=== PATIENT | female | born 1955 | race Caucasian/White ===

== ENCOUNTER 2020-11-21 06:27 | Inpatient (IN) ==
--- NOTE | 2020-11-14 13:45 | PAT Medication Instructions ---
Medication Instructions Date of Service November 14, 2020 Home Medications albuterol sulfate 90 mcg/actuation aerosol inhaler 1 puffs INH Q6H PRN aspirin 81 mg chewable tablet 81 mg PO QAM atorvastatin 20 mg tablet 20 mg PO QAM bupropion HCl 300 mg 24 hr tablet, extended release 300 mg PO QAM clopidogrel 75 mg tablet 75 mg PO QAM metoprolol succinate 25 mg capsule sprinkle, ext. release 24 hr 25 mg PO QAM nitroglycerin 0.4 mg sublingual tablet 0.4 mg SL Q5M PRN tramadol 50 mg tablet 50 mg PO DAILY PRN umeclidinium 62.5 mcg-vilanterol 25 mcg/actuation powdr for inhalation 1 puffs INH Q24H furosemide 40 mg PO QAM Continue as directed nitroglycerin 0.4 mg sublingual tablet 0.4 mg SL Q5M PRN ASK your prescriber and surgeon aspirin 81 mg chewable tablet 81 mg PO QAM clopidogrel 75 mg tablet 75 mg PO QAM DO NOT take the morning of surgery furosemide 40 mg PO QAM Take morning of surgery With a small sip of water, OTHERWISE NOTHING TO EAT OR DRINK AFTER MIDNIGHT: albuterol sulfate 90 mcg/actuation aerosol inhaler 1 puffs INH Q6H PRN (if need ed, and bring with you to the hospital) atorvastatin 20 mg tablet 20 mg PO QAM bupropion HCl 300 mg 24 hr tablet, extended release 300 mg PO QAM metoprolol succinate 25 mg capsule sprinkle, ext. release 24 hr 25 mg PO QAM tramadol 50 mg tablet 50 mg PO DAILY PRN (if needed, may be taken up to four hours before surgery) umeclidinium 62.5 mcg-vilanterol 25 mcg/actuation powdr for inhalation 1 puffs INH Q24H Other Notes If you have any questions please call us at [phone] or [phone] or [phone] or [phone]
--- NOTE | 2020-11-16 11:46 | Anesthesiology Consultation ---
Date of Service November 16, 2020 Assessment & Plan (1) Encounter for pre-operative examination: COVID Status: As of 11/16 assessment, patient denies travel to endemic area, known exposure/sick contacts, or symptoms of COVID19. Patient instructed that they and their household members must follow strict social distancing guidelines, wear a mask in public and avoid travel/events/gatherings for 14 days prior to surgery. Preoperative COVID19 testing to be completed prior to surgery per surgeon's arrangements. Patient made aware to self-isolate as much as possible between COVID testing and surgery. Patient with left chest wall BiV ICD for cardiomyopathy (EF 20-25%). Case discussed with Dr. Vuong. Will request [employer] phlebotomy services representative be present a.m. day of surgery given proximity of surgery to ICD. OR made aware. Patient seen for cardiology office visit 08/11/2020. "CADcontinue ASA and Plavix. EF remains poorcontinue medsclinically no CHF... 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 Clinically without CHF symptoms despite LV dysfunctionchange to Entresto and continue and BB; s/p His lead BiV ICD." Also received note from cardio indicating patient is intermediate cardiac risk -- "pt is optimized on medical therapy." Pt c/o hoarse voice and sore throat at [facility]. No known COVID exposures, no high- risk activity. COVID testing completed 11/16/20 at surgeon's office -- results NEGATIVE. Chart Review Chart Review: Acceptable Risk for Surgery and Patient seen in Pre Admission Testing Teaching & Discussion Instructed NPO after midnight before surgery, except medications with 15 cc of water. Medication instructions provided according to the [facility] guidelines. History Surgery Operation Date: 11/21/20 08:00 Proposed Procedures p Left Carotid Endarterectomy - Topher Brooks MD Height/Weight Height: 5 ft 2.5 in Weight: 110.9 kg Allergies Allergy/AdvReac Type Severity Reaction Status Date / Time Penicillins Allergy hives Verified 11/07/20 10:23 Medications Home Medications Medication Instructions Recorded Confirmed Last Taken albuterol sulfate 90 mcg/actuation 1 puffs INH Q6H PRN 07/23/19 11/07/20 Unknown aerosol inhaler aspirin 81 mg chewable tablet 81 mg PO QAM 07/23/19 11/07/20 Unknown atorvastatin 20 mg tablet 20 mg PO QAM 07/23/19 11/07/20 Unknown bupropion HCl 300 mg 24 hr tablet, 300 mg PO QAM 07/23/19 11/07/20 Unknown extended release clopidogrel 75 mg tablet 75 mg PO QAM 07/23/19 11/07/20 Unknown metoprolol succinate 25 mg capsule 25 mg PO QAM 07/23/19 11/07/20 Unknown sprinkle, ext. 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 Was seen by Wendy for possible bx or surgical intervention 07/28/19, but was in the midst of her cardiac workup at that time. Mediastinal mass Exercise / Class Metabolic Activity III < 4 Walking/Shop/Light housework (+SOB with 1 FOS and with ambulation, denies any chest pain) Past Family History Family History (Updated 07/28/19 @ 11:49 by Saira Lou RN) Other Diabetes Hypertension Past Surgical History Surgical History (Updated 11/16/20 @ 12:04 by Paulie Correa) History of heart artery stent 07/30/19 [facility]. Two-vessel obstructive CAD with successful PCI with FORD of the mid RCA. 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 +hoarse voice/laryngitis, just mildly sore throat in AM Physical Exam Vital Signs BP: 120/70 P: 83bpm SPO2: 94% RA T: 98.1 F R: 20 Constitutional + obese ENMT Mouth: + dentures (full upper, partial lower); no chipped teeth and no loose teeth Mallampati Class: IV Posterior oropharynx mildly erythematous. Neck + short neck and + thick neck; neck extension not limited Respiratory normal respiratory effort, lungs clear to auscultation Auscultation: + diminished lung sounds (B/L); no crackles, no rales and no wheezes Cardiovascular RRR, no murmur, no edema Testing Laboratory Results 11/16/20 11:48 PT 10.3 Seconds (9.0-12.0) 11/16/20 11:48 INR 1.0 (0.9-1.1) 11/16/20 11:48 APTT 25.4 Seconds (21.0-31.0) 11/16/20 11:48 Blood Type A Positive 11/16/20 11:48 Antibody Screen NEGATIVE 11/16/20 11:48 BMP 11/11/20 SODIUM: 140 POTASSIUM: 4.5 CHLORIDE: 103 CO2: 31 BUN: 20 CREATININE: 0.94 GLUCOSE: 103 Electrocardiogram Date: 11/16/20 Atrial sensed ventricular paced rhythm at 78 bpm. Chest X-Ray Date: 11/16/20 Findings: + NAD Cardiomegaly. Echocardiogram Date: 08/03/20 EF: 20-25% Normal LV wall thickness. Wall motion abnormalities as noted above (mid to apical inferior/anterolateral wall akinesis, basal inferior akinesis, and global hypokinesis). Severe left ventricular systolic dysfunction. Moderate aortic insufficiency, moderate mitral regurgitation, mild mitral stenosis, and trace tricuspid regurgitation. Mild pulmonary hypertension. Grade 1 diastolic dysfunction. Compared to the previous study the overall EF has improved slightly; the diastolic dysfunction is also improved, was previously restrictive. Cardiac Catheterization Date: 07/30/19 Two-vessel obstructive coronary artery disease as above. Successful PCI with FORD of the mid RCA. Elevated left ventricular end-diastolic pressure. No gradient across aortic valve. Other Testing Pacemaker/ICD Interrogation 07/28/20 Model: Accent Implantation date: 01/27/20 Indication: Coronary artery disease Battery/Longevity: 2.95 volts, 3.3 years Mode: DDDR Pacin% ventricular pacing, 29.6% RA pacing Summary: No events. OptiVol is WNL. This is a normal implantable cardioverter defibrillator remote follow-up. No significant device related abnormalities were noted.
--- NOTE | 2020-11-16 12:09 | XRay Report ---
XR chest Pre-admission PA/Lat CLINICAL HISTORY: Preoperative chest COMPARISON STUDY: No previous studies for comparison. FINDINGS: The heart is enlarged. There is a left subclavian dual-chamber pacer/defibrillator. There i s no failure. There is no focal pulmonary consolidation. There are no pleural effusions.[ IMPRESSION: Cardiomegaly. No acute findings. ACT 112: Negative or not required by law. Electronically signed by: John Davies M.D. 11/16/2020 12:07 PM
[2020-11-16 13:30] LABS: Partial Thromboplastin Time 25.4 Seconds (21.0-31.0); Prothrombin Time 10.3 Seconds (9.0-12.0)
[2020-11-16 13:32] LABS: Basophils # (auto) 0.02 K/uL (0-0.2); Basophils % (auto) 0.2 %; Eosinophils # (auto) 0.12 K/uL (0-0.5); Eosinophils % (auto) 1.4 %; Hematocrit (blood only) 50.4 % (37-47); Hemoglobin 16.7 g/dL (12.0-16.0); Immature Granulocytes # (auto) 0.01 K/uL (0.00-0.02); Immature Granulocytes % (auto) 0.1 %; Lymphocytes # (auto) 2.14 K/uL (1.2-3.4); Lymphocytes % (auto) 24.3 %; Mean Corpuscular Hemoglobin 31.9 pg (25-34); Mean Corpuscular Hgb Conc 33.1 g/dL (32-36); Mean Corpuscular Volume 96.4 fL (80-100); Mean Platelet Volume 9.8 fL (7.4-10.4); Monocytes % (auto) 9.1 %; Neutrophils # (auto) 5.73 K/uL (1.4-6.5); Neutrophils % (auto) 64.9 %; Platelet Count 215 K/uL (130-400); RDW Coefficient of Variation 13.5 % (11.5-14.5); RDW Standard Deviation 47.7 fL (36.4-46.3); Red Blood Count 5.23 M/uL (4.2-5.4); White Blood Count 8.82 K/uL (4.8-10.8)
--- NOTE | 2020-11-16 16:23 | Electrocardiogram Report ---
Test Reason : Blood Pressure : / mmHG Vent. Rate : 078 BPM Atrial Rate : 078 BPM P-R Int : 108 ms QRS Dur : 198 ms QT Int : 482 ms P-R-T Axes : 071 065 270 degrees QTc Int : 549 ms Atrial-sensed ventricular-paced rhythm Abnormal ECG No previous ECGs available Confirmed by Irineo Ash ([id number]) on 11/16/2020 4:23:30 PM Referred By: Topher Brooks Confirmed By:Irineo Ash
[~2020-11-21 06:27] MED LIST: ALBUMIN HUMAN 5% 12.5 GM/250 ML VIAL IV ONE; CLINDAMYCIN 600 MG/54 ML BAG IV SCH; SUGAMMADEX SODIUM 200 MG/2 ML VIAL IV ONE
[2020-11-21] MEDS ORDERED: HYDROmorphone INJ 2 MG/ML SYR/VIAL ONE (06:46)
[2020-11-21] MEDS ORDERED: MIDAZOLAM HCL 1 MG/ML 2ML VIAL ONE (06:46)
[2020-11-21] MEDS ORDERED: fentaNYL citrate 100 MCG/2 ML VIAL ONE (06:46)
[2020-11-21] MEDS ORDERED: THROMBIN FOR SOLN 20000 UNIT KIT ONE (07:06)
[2020-11-21] MEDS ORDERED: GELATIN SPONGE SZ 100 ONE (07:06)
[2020-11-21] MEDS ORDERED: HEPARIN (PORCINE) 1000 UNIT/ML 10 ML (CATH LAB USE ONLY) ONE (07:06)
[2020-11-21] MEDS ORDERED: BUPIVACAINE/EPINEPHRINE 0.5% MPF 1:200,000 30 ML VIAL ONE (07:06)
[2020-11-21] MEDS ORDERED: LIDOCAINE HCL 1% 20 ML VIAL ONE (07:06)
[2020-11-21] MEDS ORDERED: ATROPINE SULFATE 0.1 MG/ML 10ML SYR IV PRN (07:07)
[2020-11-21] MEDS ORDERED: fentaNYL citrate 100 MCG/2 ML VIAL IV PRN (07:07)
[2020-11-21] MEDS ORDERED: ePHEDrine sulfate 50 MG/ML AMP IV PRN (07:07)
[2020-11-21] MEDS ORDERED: ONDANSETRON INJ 2 MG/ML 2 ML VIAL IV PRN (07:07)
--- NOTE | 2020-11-21 07:29 | History & Physical Report ---
Date of Service November 21, 2020 Assessment & Plan (1) Stenosis of left internal carotid artery: Patient is admitted for a left carotid endarterectomy. I have discussed the risks options and benefits of the procedure with the patient. The patient understands the risks options and benefits and agrees to the procedure. History of Present Illness Chief Complaint: Left internal carotid artery stenosis Primary Care Provider: Jordon Isaac MD Ms Overton is a 65-year-old obese female with a history of cardiac disease with cardiac stenting in July 2019 as well as COPD. She was found to have a left carotid stenosis on ultrasound. This was confirmed by further imaging and finally by arteriography. The arteriogram showed severe stenosis of left internal carotid artery which was focal at the origin with a large amount of plaque present. She is asymptomatic from carotid disease at this time. She does not have any chest pain. She denies any claudication of the lower extremities. He does get occasional shortness of breath on walking due to her COPD. She does smoke a pack a day for last 30 years and continues to smoke. Allergies Allergy/AdvReac Type Severity Reaction Status Date / Time Penicillins Allergy hives Verified 11/21/20 06:51 Home Medications Medication Instructions Recorded Confirmed Type albuterol sulfate 90 mcg/actuation 1 puffs INH Q6H PRN 07/23/19 11/21/20 History aerosol inhaler aspirin 81 mg chewable tablet 81 mg PO QAM 07/23/19 11/21/20 History atorvastatin 20 mg tablet 20 mg PO QAM 07/23/19 11/21/20 History bupropion HCl 300 mg 24 hr tablet, 300 mg PO QAM 07/23/19 11/21/20 History extended release clopidogrel 75 mg tablet 75 mg PO QAM 07/23/19 11/21/20 History metoprolol succinate 25 mg capsule 25 mg PO QAM 07/23/19 11/21/20 History sprinkle, ext. 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 Was seen by Wendy for possible bx or surgical intervention 07/28/19, but was in the midst of her cardiac workup at that time. Mediastinal mass Surgical History History of heart artery stent 07/30/19 On license of [facility]. Two-vessel obstructive CAD with successful PCI with FORD of the mid RCA. 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 S/P knee surgery Family History Other Diabetes Hypertension Social History Smoking Status: Current every day smoker packs per day: 0.5; Years Smoked: 30; Cigarettes Per Day: 3-5 cig a day; Second Hand Exposure: No; Do You Dip or Chew Tobacco: No; Tobacco Cessation Education Requested by Patient: No Hx Alcohol Use: No Hx Substance Use: No Preferred Language: Sami Communication Ability: Effective Soup Mixer Required: No Beliefs That Will Affect Care: None marital status: Current Living Situation: Spouse current occupational status: unemployed Other Information That Helps Us Care for You: No Feels Safe at Home: Yes Safety Concerns: Feels Safe At This Time Assistive Devices: Glasses Review of Systems All systems reviewed & are unremarkable except as noted in HPI & below Physical Exam Physical Exam: On exam the patient is awake alert and oriented x3. She is in no apparent distress. Her radials are +2 bilaterally. Neck cannot really appreciate carotid bruits. Her lungs had decreased breath sounds in the bases and occasional wheezing. Heart had a regular rate and rhythm. Abdominal exam is benign. Her pedal pulses were nonpalpable. She does have slightly decreased capillary refill of the lower extremities. Her lower extremities appear to show signs of venous insufficiency. Her neurologic exams grossly intact to motor and sensory function. Her angiogram films were reviewed which showed a severe stenosis of the origin of the left internal carotid artery with a large amount of plaque in poststenotic dilatation. Results & Data ([facility]) Vital Signs (Past 12 Hours) Vital Signs Temp Pulse Resp BP BP Pulse Ox 11/21/20 07:05 36.6 C 96 H 24 167/75 H 120/66 94
[2020-11-21] MEDS: LACTATED RINGER'S 1,000 ML IV SCH ×4 (07:35→23:46)
[2020-11-21] MEDS ORDERED: LIDOCAINE HCL 2% MPF (LOCAL) 5 ML VIAL INFIL ONE (07:41)
[2020-11-21] MEDS ORDERED: ePHEDrine sulfate 50 MG/ML SYR ONE (08:54)
[2020-11-21] MEDS ORDERED: ROCURONIUM BROMIDE 10 MG/ML 5 ML VIAL IV ONE (08:54)
[2020-11-21] MEDS ORDERED: ETOMIDATE 2 MG/ML 20 ML VIAL IV ONE (08:54)
[2020-11-21] MEDS ORDERED: ONDANSETRON INJ 2 MG/ML 2 ML VIAL ONE (08:54)
[2020-11-21] MEDS ORDERED: SODIUM CHLORIDE 0.9% INJ 10 ML VIAL ONE (08:54)
[2020-11-21] MEDS ORDERED: LARYING-O-JET KIT (LTA) ONE (08:54)
[2020-11-21] MEDS ORDERED: LIDOCAINE HCL 2% 2 ML VIAL/AMP(20MG/ML) INFIL ONE (08:54)
[2020-11-21] MEDS ORDERED: HEPARIN SOD (PORCINE) 1000 UNIT/ML ONE (08:58)
--- NOTE | 2020-11-21 10:37 | Operative Report ---
Post Operative Report Pre & Post Diagnosis Operation Date: 11/21/20 08:00 Pre-Op Diagnosis: Left Internal Carotid Artery Stenosis Post-Op Diagnosis: Left Internal Carotid Artery Stenosis I identified the patient and participated in the time-out.: Yes Procedure Operation Date: 11/21/20 08:00 Actual Procedures p Left Carotid Endarterectomy with bovine patch(Left) - Topher Brooks MD Surgeon Topher Brooks MD Bankruptcy Assistant CALIN Crow Estimated Blood Loss 80 Findings Consistent with Post-Op Diagnosis Specimens plaque and lymph node Anesthesia Type General Complications none Disposition Accompanied Patient To Recovery: No Disposition: Recovery Room Indications This a 65yo who was found to have a severe left internal carotid artery stenosis. Endarterectomy was recommended. I have discussed the risks options and benefits of the procedure with the patient. The patient understands the risks options and benefits and agrees to the procedure. Description of Procedure The patient was taken to the operating room and placed in supine position. After general anesthesia was accomplished the left side of the neck was prepped and draped in a sterile manner. The patient was identified and a timeout performed. A longitudinal neck incision was then made coursing along the medial border of the sternocleidomastoid muscle. The incision was taken down through the platysmal layer. The facial vein was identified, ligated, and divided. The common carotid artery was then seen. It was dissected free down to the omohyoid muscle. The dissection was carried upward until the external carotid artery and superior thyroid artery was seen. The superior thyroid artery was slung with a 2-0 silk suture. The external carotid was slung with a red rubber vessel loop. Next the dissection was carried up along the internal carotid artery. This was carried upward to beyond the area of narrowing. The hypoglossal nerve was seen and preserved. The patient was heparinized. After adequate heparinization was accomplished, the internal, external, and common carotid arteries were clamped. A longitudinal arteriotomy was started on the common carotid artery and extended upward along the internal carotid artery to a point beyond the area of narrowing. There was calcified plaque of the internal carotid artery origin causing approximately 90% narrowing. A Doppler shunt was then placed in the internal, followed by the common carotid artery and held in place with Héctor clamps. There was good back bleeding seen from the internal carotid artery. The endarterectomy was then started in the appropriate plane on the common carotid artery. This was carried upward and the external carotid was everted and endarterectomized. The endarterectomy was then carried up along the internal carotid artery till a nice feathering breakoff point was accomplished beyond the end of the plaque. The endarterectomy was then carried down further on the common carotid artery. At end of the arteriotomy, the plaque was then transected. Under loop magnification, all loose debris and flaps werer removed. There is no distal flap seen at the end of the endarterectomy site. I did place two tacking sutures at the end of the plaque breakoff point. The arteriotomy then closed using a Bovine patch and a running 6-0 prolene suture. This was done in the usual vascular fashion. Prior to completing the closure, the doppler shunt was removed and the internal and common carotid arteries were reclamped. Backbleeding and forward bleeding was allowed to occur. The flow surface was irrigated with heparinized saline. The final few sutures were then placed and securely tied. Clamps were then removed off the external and common carotid arteries. The clamp was then removed the internal carotid artery. Good distal flow was seen. Adequate hemostasis was seen of the patch. The wound was inspected and adequate hemostasis was obtained. The wound was irrigated with antibiotic solution. It was then closed with a running 3-0 Vicryl suture for the platysmal layer and a 4-0 subcuticular Vicryl suture for the skin edges. Dermabond was used for dressing. The patient left the operation room in satisfactory condition and tolerated the procedure well. All needle and sponge counts were correct at the end of the procedure. Nathalia Hayes Pac assisted due to lack of resident availability and was necessary for prepping, draping, retraction, wound closure defects, subQ and skin closure and was necessary for the case. I attest to the content of the Intraoperative Record and any orders documented therein. Any exceptions are noted below.
[2020-11-21] MEDS ORDERED: PROTAMINE SULFATE 10 MG/ML 5 ML VIAL ONE (11:08)
--- NOTE | 2020-11-21 11:51 | Anesthesiology Progress Note ---
Date of Service November 21, 2020 Anesthesia Post Procedure Vital Signs Vital Signs: Temp Pulse Resp BP BP BP Pulse Ox 11/21/20 11:43 97.5 F L 84 17 140/71 126/49 L 93 11/21/20 11:20 84 17 157/79 H 136/53 L 93 11/21/20 11:10 85 17 157/62 H 145/60 H 93 11/21/20 11:02 97.0 F L 84 18 147/61 H 147/59 H 93 11/21/20 07:05 97.9 F 96 H 24 167/75 H 120/66 94 Transfer of Care Handoff Completed per policy Notes Mental Status: alert / awake / arousable and participated in evaluation Patient Amnestic to Procedure: Yes Nausea / Vomiting: adequately controlled Pain: adequately controlled Airway Patency, RR, SpO2: stable & adequate BP & HR: stable & adequate Hydration State: stable & adequate Anesthetic Complications: no major complications apparent and Pt Satisfied with anesthetic care
[2020-11-21] MEDS ORDERED: traMADol HCL 50 MG TABLET PO PRN (12:26)
[2020-11-21] MEDS ORDERED: MoRPHine SULFATE 4 MG/ML 1 ML CARP\\VIAL IV PRN (12:26)
[2020-11-21] MEDS ORDERED: ALBUTEROL HFA 8 GM INHALER INH PRN (12:26)
[2020-11-21] MEDS ORDERED: NITROGLYCERIN SL 0.4 MG/TAB TAB SL PRN (12:26)
[2020-11-21] MEDS ORDERED: oxyCODONE/ACETAMINOPHEN 5mg/325mg TAB PO PRN (12:26)
[2020-11-21] MEDS ORDERED: UMECLIDINIUM/VILANTEROL 62.5/25MCG 7 PUFFS/INHALER INH SCH (12:26)
[2020-11-21] MEDS ORDERED: PNEUMOCOCCAL ADMINISTRATION CHARGE ONE (13:24)
[2020-11-21] MEDS ORDERED: PNEUMOCOCCAL POLYSACCHARIDES 25 MCG/0.5 ML VIAL/SYR IM ONE (13:24)
--- NOTE | 2020-11-21 14:18 | Critical Care Consultation ---
Date of Consultation November 21, 2020 Assessment & Plan (1) Stenosis of left internal carotid artery: (2) Mass of right lung: (3) COPD (chronic obstructive pulmonary disease): (4) Hypertension: (5) Hyperlipemia: Impression: 65-year-old female status post left carotid endarterectomy for asymptomatic carotid stenosis. She is doing well in the ICU postoperatively. Recommendations: 1. Carotid endarterectomy: Management per vascular surgery. Will defer to them blood pressure goals. 2. Hypertension/hyperlipidemia: Continue outpatient medications including Lipitor and metoprolol as well as sublingual nitro and valsartan/sacubitril. 3. Abnormal CT scan: The patient has a 5 cm right middle lobe mass identified on CT scanning from 2019. Recommend follow-up CT scan if this is not been accomplished although her chest x-ray does not demonstrate significant abnormality which would argue for a benign nature of the lesion. This can be accomplished in outpatient follow-up with the pulmonary clinic after discharge if needed. 4. COPD: PFTs not available. Continue Anoro and as needed albuterol. Wean oxygen as tolerated. Increase activity and out of bed to chair as tolerated. Ultimate disposition per vascular surgery. We will continue to follow while in the intensive care unit. Feel free to contact us if questions. History of Present Illness Attending Physician: Topher Brooks MD History of Present Illness Asked by Dr. Brooks to assist in critical care management of this patient status post left carotid endarterectomy. This 65-year-old female has a history of coronary artery disease. She was found to have left carotid stenosis on imaging and confirmed by arteriography. She was asymptomatic. She has a history of tobacco abuse. She was felt appropriate for carotid endarterectomy and was taken to the OR today. She returns to the ICU extubated. She is doing well clinically. She is having no pain issues. She states she is breathing well. No neurological defects currently. Allergies Allergy/AdvReac Type Severity Reaction Status Date / Time Penicillins Allergy hives Verified 11/21/20 06:51 Home Medications Medication Instructions Recorded Confirmed Type albuterol sulfate 90 mcg/actuation 1 puffs INH Q6H PRN 07/23/19 11/21/20 History aerosol inhaler aspirin 81 mg chewable tablet 81 mg PO QAM 07/23/19 11/21/20 History atorvastatin 20 mg tablet 20 mg PO QAM 07/23/19 11/21/20 History bupropion HCl 300 mg 24 hr tablet, 300 mg PO QAM 07/23/19 11/21/20 History extended release clopidogrel 75 mg tablet 75 mg PO QAM 07/23/19 11/21/20 History metoprolol succinate 25 mg capsule 25 mg PO QAM 07/23/19 11/21/20 History sprinkle, ext. 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 Was seen by Wendy for possible bx or surgical intervention 07/28/19, but was in the midst of her cardiac workup at that time. Mediastinal mass Surgical History History of heart artery stent 07/30/19 [facility]. Two-vessel obstructive CAD with successful PCI with FORD of the mid RCA. 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 S/P knee surgery Family History Other Diabetes Hypertension Social History Smoking Status: Current every day smoker packs per day: 0.5; Years Smoked: 30; Cigarettes Per Day: 3-5 cig a day; Second Hand Exposure: No; Do You Dip or Chew Tobacco: No; Tobacco Cessation Education Requested by Patient: No Hx Alcohol Use: No Hx Substance Use: No Preferred Language: Malay Communication Ability: Effective Drafting Supervisor Required: No Beliefs That Will Affect Care: None marital status: Current Living Situation: Spouse current occupational status: unemployed Other Information That Helps Us Care for You: No Feels Safe at Home: Yes Safety Concerns: Feels Safe At This Time Assistive Devices: Glasses Review of Systems Review of Systems: Patient seen and examined. Please refer to vascular surgery note for complete details Physical Exam Constitutional: WD/WN, vitals as above Neck: trachea midline, no thyromegaly Respiratory: normal respiratory effort, lungs clear to auscultation Cardiovascular: RRR, no murmur, no edema Gastrointestinal (Abdomen): normal bowel sounds, soft, nontender, no hepatos plenomegaly Musculoskeletal: Extremities: extremities normal to inspection Skin: no rashes, warm and dry Neurologic: Nonfocal exam Lymphatic: no cervical lymphadenopathy Results & Data Results & Data ([facility]) Vital Signs (Past 12 Hours) Vital Signs Temp Pulse Pulse Resp BP BP BP 11/21/20 12:31 36.7 C 11/21/20 12:06 84 20 137/69 11/21/20 11:43 36.4 C L 84 17 140/71 11/21/20 11:20 84 17 157/79 H 11/21/20 11:10 85 17 157/62 H 11/21/20 11:02 36.1 C L 84 18 147/61 H 11/21/20 07:05 36.6 C 96 H 24 167/75 H BP Pulse Ox 11/21/20 12:31 11/21/20 12:06 92 11/21/20 11:43 126/49 L 93 11/21/20 11:20 136/53 L 93 11/21/20 11:10 145/60 H 93 11/21/20 11:02 147/59 H 93 11/21/20 07:05 120/66 94 Laboratory Results 11/16/20 11:48 Diagnostic Findings Chest x-ray: 11/16/2020: Cardiomegaly is noted with probable hiatal hernia. Dual-chamber pacemaker in place with significant cardiomegaly. No focal airspace opacity identified Coding Level of Care Code 89023 Inpt Consult Level 4 Diagnoses Stenosis of left internal carotid artery I65.22 Mass of right lung R91.8 COPD (chronic obstructive pulmonary disease) J44.9 Hypertension I10 Hyperlipemia E78.5 Time Spent (min) 45
[2020-11-21] MEDS: CLINDAMYCIN 600 MG in DEXTROSE 5% 50 ML IV SCH ×2 (16:06→23:27)
[2020-11-21] MEDS: SACUBITRIL-VALSARTAN 24-26 MG TAB PO SCH (21:59)
[2020-11-22 05:44] LABS: Basophils # (auto) 0.01 K/uL (0-0.2); Basophils % (auto) 0.1 %; Eosinophils # (auto) 0.02 K/uL (0-0.5); Eosinophils % (auto) 0.2 %; Hemoglobin 14.6 g/dL (12.0-16.0); Immature Granulocytes # (auto) 0.03 K/uL (0.00-0.02); Immature Granulocytes % (auto) 0.2 %; Lymphocytes # (auto) 1.77 K/uL (1.2-3.4); Lymphocytes % (auto) 13.7 %; Mean Corpuscular Hemoglobin 32.3 pg (25-34); Mean Corpuscular Hgb Conc 33.2 g/dL (32-36); Mean Corpuscular Volume 97.3 fL (80-100); Mean Platelet Volume 9.3 fL (7.4-10.4); Monocytes # (auto) 1.56 K/uL (0.11-0.59); Monocytes % (auto) 12.1 %; Neutrophils # (auto) 9.51 K/uL (1.4-6.5); Neutrophils % (auto) 73.7 %; Platelet Count 205 K/uL (130-400); RDW Coefficient of Variation 13.5 % (11.5-14.5); RDW Standard Deviation 48.6 fL (36.4-46.3); Red Blood Count 4.52 M/uL (4.2-5.4)
[2020-11-22 05:59] LABS: BUN Creatinine Ratio 28.3 (10-20); Calcium 8.4 mg/dl (8.5-10.1); Creatinine Clr Calc Pharmacy 85.1 ml/min; Est GFR (African American) 90.9; Est GFR (Non-African American) 78.5; Magnesium 2.3 mg/dl (1.8-2.4); Potassium 4.9 mmol/L (3.5-5.1)
[2020-11-22 06:00] LABS: Phosphorus 4.4 mg/dl (2.5-4.9)
[2020-11-22] MEDS: LACTATED RINGER'S 1,000 ML IV SCH ×2 (06:26→08:41)
--- NOTE | 2020-11-22 07:33 | Critical Care Progress Note ---
Date of Service November 22, 2020 Assessment & Plan (1) Stenosis of left internal carotid artery: (2) Mass of right lung: (3) COPD (chronic obstructive pulmonary disease): (4) Hypertension: (5) Hyperlipemia: Impression: 65-year-old female status post left carotid endarterectomy for asymptomatic carotid stenosis. Recommendations: 1. Carotid endarterectomy: Management per vascular surgery. Will defer to them blood pressure goals. 2. Hypertension/hyperlipidemia: Continue outpatient medications including Lipitor and metoprolol as well as sublingual nitro and valsartan/sacubitril. 3. Abnormal CT scan: This reportedly has been biopsied in [place] and she is being followed by Dr. Mcdaniel with serial CT scans. 4. COPD: PFTs not available. Continue Anoro and as needed albuterol. Wean oxygen as tolerated. Increase activity and out of bed to chair as tolerated. Okay to discharge from the ICU. Disposition per vascular surgery. We will sign off. Feel free to contact us if we can be of additional assistance. Admission and Anticipated Discharge Date Admission Date: November 21, 2020 Subjective Patient seen and examined. Discussed with critical care nurse. No acute events overnight. Patient states she is doing well. No respiratory problems. No num bness tingling or other neurological complaints. She has mild pain at her incision sites. Clean dry intact. She is tolerating a diet. She is not required any antihypertensives overnight. Review of Systems Review of Systems: All systems reviewed & are unremarkable except as noted in HPI & below Physical Exam Constitutional: WD/WN, vitals as above Neck: trachea midline, no thyromegaly Respiratory: normal respiratory effort, lungs clear to auscultation Cardiovascular: RRR, no murmur, no edema Gastrointestinal (Abdomen): normal bowel sounds, soft, nontender, no hepatosplenomegaly Musculoskeletal: Extremities: extremities normal to inspection Skin: no rashes, warm and dry Lymphatic: no cervical lymphadenopathy Results & Data Results & Data ([facility]) Vital Signs (Past 12 Hours) Vital Signs Temp Pulse Resp BP Pulse Ox 11/22/20 06:04 87 21 136/66 93 11/22/20 06:00 85 15 93 11/22/20 05:34 88 19 154/64 H 93 11/22/20 05:04 85 16 156/70 H 93 05/04/21 05:00 84 15 94 05//21 04:34 84 15 150/68 H 93 11/22/20 04:04 83 17 153/50 H 93 11/22/20 04:00 36.7 C 83 17 92 11/22/20 03:35 92 H 21 92 11/22/20 03:34 96 H 18 146/77 H 96 11/22/20 03:04 87 21 137/69 94 11/22/20 03:00 85 15 93 11/22/20 02:34 83 18 143/74 H 93 11/22/20 02:04 83 15 138/66 92 11/22/20 02:00 84 15 92 11/22/20 01:35 86 15 92 11/22/20 01:34 87 18 154/54 H 93 11/22/20 01:03 82 15 140/57 L 93 11/22/20 01:00 85 16 92 11/22/20 00:34 83 17 141/50 H 92 11/22/20 00:04 84 16 151/69 H 92 11/22/20 00:00 85 16 94 11/21/20 23:34 85 23 145/60 H 94 11/21/20 23:04 88 24 129/44 L 93 11/21/20 23:00 37 C 82 17 92 11/21/20 22:35 86 24 141/61 H 94 11/21/20 22:10 88 21 93 11/21/20 22:04 90 25 H 121/59 L 92 11/21/20 22:00 91 H 22 94 11/21/20 21:50 86 23 93 11/21/20 21:34 85 22 136/51 L 92 11/21/20 21:30 84 23 91 03 21:20 85 19 92 11/21/20 21:10 87 22 94 11/21/20 21:04 94 H 22 115/48 L 92 11/21/20 21:00 84 22 92 11/21/20 20:50 88 22 92 11/21/20 20:40 87 19 92 11/21/20 20:34 89 21 121/61 92 11/21/20 20:30 82 22 91 11/21/20 20:20 86 24 92 11/21/20 20:10 89 26 H 92 11/21/20 20:03 83 22 119/43 L 92 11/21/20 20:00 86 23 92 11/21/20 19:50 88 26 H 92 11/21/20 19:40 88 24 92 11/21/20 19:35 89 24 111/57 L 92 11/21/20 19:30 87 24 92 Laboratory Results 11/22/20 05:25 11/22/20 05:25 Diagnostic Findings No new imaging Coding Level of Care Code 27890 Subseq Hosp Care Lvl 2 Diagnoses Stenosis of left internal carotid artery I65.22 Mass of right lung R91.8 COPD (chronic obstructive pulmonary disease) J44.9 Hypertension I10 Hyperlipemia E78.5
--- NOTE | 2020-11-22 08:33 | Surgery Progress Note ---
Date of Service November 22, 2020 Assessment & Plan (1) Stenosis of left internal carotid artery: Pt now POD #1 after L CEA. DOing well (2) Postop carotid endarterectomy surveillance, encounter for: Pt POD #1 after L CEA. Doing well. Will d/c home today. Admission and Anticipated Discharge Date Admission Date: November 21, 2020 Subjective 65 yo f POD #1 after L CEA, seen in f/u today. Pt states feeling tired and with some mild/moderate neck pain in incision. Denies any difficulty swallowing, amaurosis, extremity weakness, other new complaints. Ambulated well. Review of Systems Review of Systems: All systems reviewed & are unremarkable except as noted in HPI & below Physical Exam Physical Exam: On exam the patient is awake alert and oriented x3. She is in no apparent distress. Her radials are +2 bilaterally. Neck exam demonstrates L incision C/D/I, with mild local edema/ecchymosis. Her lungs had decreased breath sounds in the bases and occasional wheezing. Heart had a regular rate and rhythm. Abdominal exam is benign. Her pedal pulses were nonpalpable. She does have slightly decreased capillary refill of the lower extremities. Her lower extremities appear to show signs of venous insufficiency. Her neurologic exams grossly intact to motor and sensory function. Results & Data ([facility]) Vital Signs (Past 12 Hours) Vital Signs Temp Pulse Resp BP Pulse Ox 11/22/20 06:04 87 21 136/66 93 11/22/20 06:00 85 15 93 11/22/20 05:34 88 19 154/64 H 93 11/22/20 05:04 85 16 156/70 H 93 11/22/20 05:00 84 15 94 11/22/20 04:34 84 15 150/68 H 93 11/22/20 04:04 83 17 153/50 H 93 11/22/20 04:00 36.7 C 83 17 92 11/22/20 03:35 92 H 21 92 11/22/20 03:34 96 H 18 146/77 H 96 11/22/20 03:04 87 21 137/69 94 11/22/20 03:00 85 15 93 11/22/20 02:34 83 18 143/74 H 93 11/22/20 02:04 83 15 138/66 92 11/22/20 02:00 84 15 92 11/22/20 01:35 86 15 92 11/22/20 01:34 87 18 154/54 H 93 11/22/20 01:03 82 15 140/57 L 93 11/22/20 01:00 85 16 92 11/22/20 00:34 83 17 141/50 H 92 11/22/20 00:04 84 16 151/69 H 92 11/22/20 00:00 85 16 94 11/21/20 23:34 85 23 145/60 H 94 11/21/20 23:04 88 24 129/44 L 93 11/21/20 23:00 37 C 82 17 92 11/21/20 22:35 86 24 141/61 H 94 11/21/20 22:10 88 21 93 11/21/20 22:04 90 25 H 121/59 L 92 11/21/20 22:00 91 H 22 94 11/21/20 21:50 86 23 93 11/21/20 21:34 85 22 136/51 L 92 11/21/20 21:30 84 23 91 11/21/20 21:20 85 19 92 11/21/20 21:10 87 22 94 11/21/20 21:04 94 H 22 115/48 L 92 11/21/20 21:00 84 22 92 11/21/20 20:50 88 22 92 11/21/20 20:40 87 19 92 11/21/20 20:34 89 21 121/61 92 11/21/20 20:30 82 22 91
[2020-11-22] MEDS: SACUBITRIL-VALSARTAN 24-26 MG TAB PO SCH (08:36)
[2020-11-22] MEDS: ATORVASTATIN 20 MG TAB PO SCH ×2 (08:36→08:41)
--- NOTE | 2020-11-22 08:36 | Discharge Summary ---
Date of Service November 22, 2020 Admission HPI Per Admitting Provider Ms Overton is a 65-year-old obese female with a history of cardiac disease with cardiac stenting in July 2019 as well as COPD. She was found to have a left carotid stenosis on ultrasound. This was confirmed by further imaging and finally by arteriography. The arteriogram showed severe stenosis of left internal carotid artery which was focal at the origin with a large amount of plaque present. She is asymptomatic from carotid disease at this time. She does not have any chest pain. She denies any claudication of the lower extremities. He does get occasional shortness of breath on walking due to her COPD. She does smoke a pack a day for last 30 years and continues to smoke. Admission Exam Per Admitting Provider On exam the patient is awake alert and oriented x3. She is in no apparent distress. Her radials are +2 bilaterally. Neck cannot really appreciate carotid bruits. Her lungs had decreased breath sounds in the bases and occasional wheezing. Heart had a regular rate and rhythm. Abdominal exam is benign. Her pedal pulses were nonpalpable. She does have slightly decreased capillary refill of the lower extremities. Her lower extremities appear to show signs of venous insufficiency. Her neurologic exams grossly intact to motor and sensory function. Her angiogram films were reviewed which showed a severe stenosis of the origin of the left internal carotid artery with a large amount of plaque in poststenotic dila Principal Diagnosis 1. s/p L CEA 2. L ICA stenosis Discharge Exam Constitutional WD/WN, vitals as above + morbidly obese Neck L neck incision C/D/I, mild local soft edema/ecchymosis Respiratory normal respiratory effort, lungs clear to auscultation Auscultation: + diminished lung sounds Cardiovascular Rate/Rhythm: regular rate and regular rhythm Vessels: posterior tibial pulses present, dorsalis pedis pulses present and radial pulses present; + abnormal peripheral pulses Extremities: normal capillary refill and + edema (mild BLE) Gastrointestinal (Abdomen) normal bowel sounds, soft, nontender, no hepatosplenomegaly Musculoskeletal no cyanosis or clubbing, extremities motor strength 5/5 Skin no rashes, warm and dry Neurologic CN's II-XI intact bilaterally, moves all extremities and awake; no focal motor deficits and not confused Psychiatric A+Ox3, euthymic affect Discharge Data Allergies Allergy/AdvReac Type Severity Reaction Status Date / Time Penicillins Allergy hives Verified 11/21/20 06:51 Consultations 11/21/20 12:26 Consult Residential Mortgage Manager Routine Procedures Performed Operation Date: 11/21/20 08:00 Actual Procedures p Left Carotid Endarterectomy(Left) - Topher Brooks MD Ordered Studies 11/21/20 06:39 US guide vascular access Stat Hospital Course (1) Stenosis of left internal carotid artery: Pt now POD #1 after L CEA. DOing well (2) Postop carotid endarterectomy surveillance, encounter for: Pt POD #1 after L CEA. Doing well. Will d/c home today. Total Time Total Time Spent Total Time Spent (In Minutes): 0 Discharge Plan Discharge Items Patient Disposition: Home - Self-Care Reason For Visit: Left Internal Carotid Artery Stenosis Discharge Diagnosis: 1. s/p Left Carotid Endarterectomy with bovine patch 2. Left Carotid Stenosis Activity: Per Instructions section Non-emergency contact: Primary Care Provider and Surgeon Call non-emergency contact if: you have any medication questions, your pain is not controlled, your pain is concerning for you, you have a fever, your wound has increased redness and your wound has increased drainage Follow-up/Referrals: Topher Brooks MD [Physician] - (Follow up with Dr Brooks or Nathalia Hayes PA-C, in 2 weeks) Jordon Isaac MD [Primary Care Provider] - (Follow up with PCP within 1-2 weeks) Diet: Heart Healthy Addtl Attending Provider Instructions: SPECIAL CARE INSTRUCTIONS: Medications: * Continue to take Aspirin as directed. Incision Care: * You may shower, but do not rub incision. You may let the warm soapy water run over it. Be sure to dry the incision well after bathing. * Do not shave directly over the incision until it is healed. * DO NOT IMMERSE THE INCISION IN A TUB/POOL/etc. UNTIL HEALED. Restrictions: * Do not drive for at least one week or if you are still taking any narcotic pain medication. * Do not lift anything heavier than a gallon of milk for one week after going home. Possible Complications: * Numbness - It is normal to have some numbness around the incision. Numbness can extend beyond the incision to areas of the neck, ear and face. The numbness is due to bruising of nerves during the surgery and will gradually improve over a period of months. * Hoarseness/Difficulty Speaking and Swallowing - The bruising of nerves in the neck can also cause a hoarse voice, difficulty speaking or swallowing. This may improve over time, HOWEVER, if it continues for more than a few days please contact our office ([phone]). * Excessive Swelling - There will be some swelling immediately after surgery which usually resolves within one week. If you notice that the swelling is getting worse, notify your surgeon ([phone]). * Drainage/Bleeding - If there is any drainage or bleeding, it should be a very small amount (less than a teaspoon per day). If you have excessive bleeding or drainage from the incision, call your surgeon ([phone]) right away. ACTIVATION OF EMERGENCY MEDICAL SYSTEM: Call 911, immediately, if you experience any of the following: Warning Signs and Symptoms of Stroke: * Sudden numbness or weakness of the face, arm or leg, especially on one side of the body * Sudden confusion, trouble speaking or understanding * Sudden trouble seeing in one or both eyes * Sudden trouble walking, dizziness, loss of balance or coordination * Sudden severe headache with no cause Do not delay calling 911 if you experience any warning signs or symptoms of a stroke. Delay in seeking medical attention may affect what treatments can be given to you. Risk Factors for Stroke: You can reduce your chances of stroke by working with your medical provider to adopt a healthy lifestyle. Some specific ways to lower your chance of stroke are: * If you are a smoker, now is the time to stop smoking cigarettes * If you are diabetic, improve the control of your blood sugars * Avoid excessive amounts of alcohol * Control high blood pressure * Lose weight if you are overweight * Be sure to lead an active lifestyle * Eat a healthy diet low in salt, cholesterol and fat You should know about other risk factors for stroke that you are unable to control. These include: * Age 55 years or older * Male gender * Certain racial groups: , or / * Family History of Stroke, Mini stroke or Heart Attack * Sickle Cell Disease You will be receiving a call from the Vascular Surgery Nurse after you are discharged. FOLLOW UP VISIT: It is important for you to keep your follow up appointments with your medical provider. Keep any scheduled doctor appointments. Pending Studies at Discharge: No Stand-Alone Forms: [employer], Smoking Cessation Medications and DC Order Prescriptions: New oxycodone-acetaminophen [Percocet] 5-325 mg Tablet 1 - 2 tab PO Q4H PRN (Reason: pain) Qty: 30 RF: 0 Continued metoprolol succinate 25 mg capsule,sprinkle,ER 24hr 25 mg PO QAM RF: 0 nitroglycerin 0.4 mg tablet, sublingual 0.4 mg SL Q5M PRN (Reason: cp) RF: 0 clopidogrel 75 mg tablet 75 mg PO QAM RF: 0 albuterol sulfate [Ventolin HFA] 90 mcg/actuation HFA aerosol inhaler 1 puffs INH Q6H PRN (Reason: sob) RF: 0 bupropion HCl 300 mg tablet extended release 24 hr 300 mg PO QAM RF: 0 Anoro Ellipta 62.5-25 mcg/actuation blister with device 1 puffs INH Q24H RF: 0 atorvastatin 20 mg tablet 20 mg PO QAM RF: 0 aspirin 81 mg tablet,chewable 81 mg PO QAM RF: 0 furosemide 40 mg Tablet 40 mg PO QAM RF: 0 Entresto 24-26 mg Tablet 1 tab PO BID RF: 0 Discontinued tramadol 50 mg tablet 50 mg PO DAILY PRN (Reason: Pain) RF: 0 Discharge Orders: Discharge Order (Routine); Ordered 11/22/20 Ordered By: Nathalia Hayes Admission Data Admit Date/Time: 11/21/20 07:29 Attending Provider: Topher Brooks Admit Provider: Topher Brooks Primary Care Provider: Jordon Isaac Other Providers: Yonis Patel ; Chintan Mota ; Power Rubio ; Cali Landaverde ; Alberto Neville ; Ty Swann ; Liam Moreno
[2020-11-22] MEDS ORDERED: METOPROLOL SUCC 25MG EXT REL TAB PO SCH (09:00)
[2020-11-22] MEDS ORDERED: ASPIRIN 81 MG ECTAB PO SCH (09:00)
[2020-11-22] MEDS ORDERED: buPROPion XL 300 MG TABCR PO SCH (09:00)
[2020-11-22] MEDS ORDERED: FUROSEMIDE 40 MG TAB PO SCH (09:00)
[2020-11-22] MEDS ORDERED: CLOPIDOGREL BISULFATE 75 MG TAB PO SCH (09:00)
== END 2020-11-22 11:10 | disposition home or self-care (01) | DRG 38 ==
LOC: ASU 06:27 → 1E 07:29